=== PATIENT | male | born 1955 | race Caucasian/White ===

== ENCOUNTER 2020-07-21 12:55 | Outpatient (RCR) | payer MEDICAID, SELFPAY ==
[2020-07-21] MEDS: COVID-19 VACC, MRNA(PFIZER)/PF 30 MCG/0.3 ML SYRINGE IM (11:08)
[2020-08-11] MEDS: COVID-19 VACC, MRNA(PFIZER)/PF 30 MCG/0.3 ML SYRINGE IM (10:48)
== END 2020-07-21 23:59 ==
LOC: IMMUN 12:55
PROVIDERS: PCP Family Medicine; Visit Provider Family Medicine
DX: Z23 Encounter for immunization (principal)
CPT/HCPCS: 0001A; 0002A; 91300

== ENCOUNTER 2022-08-08 05:50 | Day surgery (SDC) | payer MEDICARE, MEDICAID, SELFPAY ==
[2022-08-08] VITALS (7 sets, daily range): BP systolic 92–138; BP diastolic 46–94; PULSE 60–65; RESP 16–18; TEMP 36.4–36.9; O2SAT 92–97; BMI 32.3
[2022-08-08] MEDS: Lactated Ringers 1,000 ML 15 ML IV (06:20)
--- NOTE | 2022-08-08 07:00 | COLBX_PTH ---
PATIENT: MARY ALICE EPSTEIN LOC: [facility] U#:[id number] AGE/SX: 67/M ROOM: RE08/08/[address]: Dr. Nicohlas Gauthier DO : 1955 BED: DIS: 08/08/2022 SPEC #: [id number] RECD: 08/08/22 10:23 STATUS: MATTHEW BIENVENIDO #: [id number] MACHO: 08/08/22 07:[address]: Nicholas Gauthier DEPT: SURGICAL PATHOLOGY RECD BY: Francisca Perez ENTERED: 08/08/22 11:35 SP TYPE: COLON BX CHRIS DR: Dr. Adrien Wiley MD Tissues: Ascending colon Procedures: Surgery Specimen Level IV HEADER OPERATION: Colonoscopy ? open access (MAC) with biopsy PRE-OP DIAGNOSIS: Screening TISSUE SUBMITTED: Ascending colon polyp biopsy MICROSCOPIC DIAGNOSIS Ascending colon polyp, biopsy: Tubular adenoma. ADOLFO:maria luz 08/09/2022 MICROSCOPIC DESCRIPTION Slides are reviewed. GROSS DESCRIPTION Received in fixative is one container labeled with the patient's name and designated ascending colon polyp. The specimen consists of one irregular fragment of light peters soft tissue that measures 0.5 x 0.3 x 0.1 cm. The specimen is totally submitted in one cassette. / AM:maria luz 08/08/2022 TC:1 CPT: 33614
--- NOTE | 2022-08-08 07:08 | PCM.HP.STD ---
[facility] - General General Date of Admission: 08/08/22 Date of Service: 08/08/22 Chief Complaint: Screening: [facility] Narrative MARY ALICE EPSTEIN, is a 67 M who presents today for screening colonoscopy. He has a past medical history of hypertension, diabetes,, history of aortic valve repair on 8 with grams of aspirin multiple years ago in 2018. He comes in today for colonoscopy. He is on oral chemotherapy for metastatic prostate cancer. He had a colonoscopy approximately 10 years ago and he had a couple benign polyps that were removed at that time. He denies any chest pain or shortness of breath he denies any weakness. [facility] Medical History (Updated 08/02/22 @ 13:52 by Nehal Uriarte) Cardiology follow-up encounter Diabetes mellitus type 2 in obese Heart murmur History of echocardiogram History of edema History of stress test HTN (hypertension) Loose, teeth Mixed hyperlipidemia Non-smoker Paroxysmal atrial fibrillation Prostate cancer Wears glasses Home Medications abiraterone 500 mg tablet (Zytiga) 1,000 mg PO DAILY Chemo 07/31/22 [History Last Taken 08/08/22 03:30] acetaminophen 500 mg tablet 1,000 mg PO Q6H PRN Pain 07/31/22 [History Last Taken Unknown] amlodipine 2.5 mg tablet 2.5 mg PO BID 07/31/22 [History Last Taken 08/08/22 03:30] aspirin 81 mg tablet,delayed release (Adult Low Dose Aspirin) 81 mg PO DAILY 07/31/22 [History Last Taken Unknown] calcium carbonate 500 mg calcium (1,250 mg) chewable tablet 500 mg PO DAILY PRN Acid Reflux 07/31/22 [History Last Taken Unknown] glimepiride 1 mg tablet 1 mg PO DAILY 07/31/22 [History Last Taken Unknown] hydrochlorothiazide 12.5 mg tablet 12.5 mg PO QAM 07/31/22 [History Last Taken 08/08/22 03:30] ibuprofen 200 mg tablet 200 mg PO Q6H PRN Pain 07/31/22 [History Last Taken Unknown] lisinopril 40 mg tablet 40 mg PO DAILY 07/31/22 [History Last Taken 08/08/22 03:30] metformin 1,000 mg tablet 1,000 mg PO BID 07/31/22 [History Last Taken Unknown] metoprolol succinate 100 mg tablet,extended release 24 hr 100 mg PO BID 07/31/22 [History Last Taken Unknown] prednisone 5 mg tablet 5 mg PO BID 07/31/22 [History Last Taken Unknown] rosuvastatin 10 mg tablet 10 mg PO DAILY 07/31/22 [History Last Taken Unknown] Allergy/AdvReac Type Severity Reaction Status Date / Time No Known Allergies Allergy Verified 08/08/22 06:23 Surgical History (Updated 08/02/22 @ 13:52 by Nehal Uriarte) History of colonoscopy History of hernia repair History of prostate biopsy History of prostate surgery Hx of heart surgery Social History (Updated 07/31/22 @ 13:51 by Rebeca Carvajal) household members: spouse current occupational status: retired Smoking Status: Never smoker ROS Review of Systems ROS Unobtainable: other Constitutional Constitutional: Denies fatigue, fever(s), poor appetite, weight gain or weight loss ENT HEENT: Denies mouth lesions Cardiovascular Cardiovascular: Denies abdominal bloating, abdominal edema or abdominal pain Respiratory/Chest Respiratory/Chest: Denies change in mental status, change in phlegm color, chest congestion or chest tightness Gastrointestinal Gastrointestinal: Denies belching, bloating, change in bowel habits, change in stool character, chewing difficulty, coffee ground emesis, constipation, cramping, diarrhea, dyspepsia, dysphagia, early satiety, excessive flatus, fecal incontinence, heartburn, hematemesis, hematochezia, hemorrhoids, loose stools, melena, nausea, odynophagia, rectal bleeding, tenesmus, vomiting or weight changes Genitourinary Genitourinary: Denies abdominal discomfort, burning urination or itching Musculoskeletal Musculoskeletal: Reports as per HPI; Denies muscle weakness or myalgias Integumentary Integumentary: Denies jaundice Neurologic Neurologic: Denies lack of coordination or weakness Psychiatric Psychiatric: Denies confusion, depression, memory loss, mood swings, paranoia or suicidal ideation Endocrine Endocrinology: Denies systems reviewed and no addt'l complaints, except as documented Hematologic/Lymphatic Hematologic/Lymphatic: Denies anemia, easy bleeding, easy bruising or lymphadenopathy Allergic/Immunologic Allergic/Immunologic: Denies systems reviewed and no addt'l complaints, except as documented Vital Signs Vital Signs Vital Signs: 08/08/22 06:25 08/08/22 06:25 Temperature 97.6 F L Temperature Source Temporal Pulse Rate 60 Respiratory Rate 16 Respiratory Pattern Normal Blood Pressure 138/73 H Blood Pressure Mean 94 Blood Pressure Source Monitor Blood Pressure Position Sitting Blood Pressure Location Left Arm Pulse Ox 97 Oxygen Delivery Method Room Air Weight Weight: 231 lb 7.766 oz Body Mass Index (BMI) 32.3 Physical Exam Const alert General Appearance: cooperative Orientation / Consciousness: oriented to person HEENT hearing grossly normal bilaterally Head and Scalp: normal to inspection Face and Sinus: face symmetric Nose: external nose normal Mouth: oral and palatal mucosa normal Eyes conjunctivae normal General Eye: normal appearance of both eyes Neck full ROM General: normal visual inspection Lymph Lymphatic: no lymphadenopathy noted Chest inspection of chest normal and palpation of chest normal Chest: symmetrical chest wall rise Resp normal respiratory effort Effort and Inspection: able to speak in complete sentences Cardio regular rate GI non-distended Percussion: normal to percussion Rectal Exam: deferred Neuro Speech: speech normal Gait (Neuro): normal gait Assessment & Plan Assessment/Plan (1) Encounter for screening for malignant neoplasm of colon: PLAN: He was explained alternatives, risk, benefits including not withstanding bleeding, infection, sepsis, perforation, need for emergent surgery . He will have an ASA of 3.
--- NOTE | 2022-08-08 07:34 | OP.CCLET_ITS ---
08/08/2022 Adrien Wiley Re : Colonoscopy procedure for Azeem Regalador Saurabh This procedure was performed on August. My impressions and recommendations are as follows: Impressions : - Diverticulosis in the recto-sigmoid colon, in the sigmoid colon, in the descending colon, at the splenic flexure and in the transverse colon. - One 5 mm polyp in the ascending colon, removed with a jumbo cold forceps. Resected and retrieved. Recommendations : - Repeat colonoscopy in 5 years for surveillance. - Continue present medications. My findings are described in the full procedure note, which is enclosed. If I can be of further assistance, please feel free to contact me at . Sincerely, Nicholas Gauthier, 08/08/2022 7:34:09 AM This report has been signed electronically.
--- NOTE | 2022-08-08 07:34 | OP.COLON_ITS ---
Patient Name: Azeem Jimenez Procedure Date: 08/08/2022 6:58 AM Date of : 1955 Age: 67 Procedure: Colonoscopy Indications: Screening for colorectal malignant neoplasm Providers: Nicholas Gauthier DO Referring MD: Nicholas Gautiher DO Medicines: Monitored Anesthesia Care Patient Profile: This is a 67 year old male. Refer to note in patient chart for documentation of history and physical. Last Colonoscopy: 10 years ago. Complications: No immediate complications. Procedure: Pre-Anesthesia Assessment: - Prior to the procedure, a History and Physical was performed, and patient medications and allergies were reviewed. The risks and benefits of the procedure and the sedation options and risks were discussed with the patient. All questions were answered and informed consent was obtained. Patient identification and proposed procedure were verified by the physician in the pre-procedure area. Mental Status Examination: alert and oriented. Airway Examination: normal oropharyngeal airway and neck mobility. Respiratory Examination: clear to auscultation. CV Examination: normal. Prophylactic Antibiotics: The patient does not require prophylactic antibiotics. Prior Anticoagulants: The patient has taken no previous anticoagulant or antiplatelet agents. ASA Grade Assessment: III - A patient with severe systemic disease. After reviewing the risks and benefits, the patient was deemed in satisfactory condition to undergo the procedure. The anesthesia plan was to use monitored anesthesia care (MAC). Immediately prior to administration of medications, the patient was re-assessed for adequacy to receive sedatives. The heart rate, respiratory rate, oxygen saturations, blood pressure, adequacy of pulmonary ventilation, and response to care were monitored throughout the procedure. The physical status of the patient was re-assessed after the procedure. After I obtained informed consent, the scope was passed under direct vision. Throughout the procedure, the patient's blood pressure, pulse, and oxygen saturations were monitored continuously. The Colonoscope was introduced through the anus and advanced to the cecum, identified by appendiceal orifice and ileocecal valve. The colonoscopy was performed without difficulty. The patient tolerated the procedure well. The quality of the bowel preparation was adequate. Scope In: 7:16:01 AM Scope Withdrawal Time 0 hours 9 minutes 12 seconds Scope Out: 7:28:14 AM Total Procedure Duration Time 0 hours 12 minutes 13 seconds Findings: The perianal and digital rectal examinations were normal. Multiple small and large-mouthed diverticula were found in the recto-sigmoid colon, sigmoid colon, descending colon, splenic flexure and transverse colon. A 5 mm polyp was found in the ascending colon. The polyp was sessile. The polyp was removed with a jumbo cold forceps. Resection and retrieval were complete. Verification of patient identification for the specimen was done. Estimated blood loss was minimal. Impression: - Diverticulosis in the recto-sigmoid colon, in the sigmoid colon, in the descending colon, at the splenic flexure and in the transverse colon. - One 5 mm polyp in the ascending colon, removed with a jumbo cold forceps. Resected and retrieved. Recommendation: - Repeat colonoscopy in 5 years for surveillance. - Continue present medications. Procedure Code(s): --- Professional --- 37097, Colonoscopy, flexible; with biopsy, single or multiple CPT copyright 2017 [employer]. All rights reserved. The codes documented in this report are preliminary and upon principal clerk review may be revised to meet current compliance requirements. Nicholas Gauthier DO 08/08/2022 7:34:09 AM This report has been signed electronically. Number of Addenda: 0 Note Initiated On: 08/08/2022 6:58 AM
== END 2022-08-08 08:20 | disposition home or self-care (01) ==
LOC: EN 05:51 → AC 05:53
PROVIDERS: PCP Family Medicine; Referring Provider Family Medicine; Visit Provider Internal Medicine Gastroenterology
PROC: 0DJD8ZZ Inspection of Lower Intestinal Tract, Via Natural or Artificial Opening Endoscopic (ICD-10-PCS; CPT 45378; principal; 2022-08-08 06:55)
DX: Z12.11 Encounter for screening for malignant neoplasm of colon (principal); D89.89 Other specified disorders involving the immune mechanism, not elsewhere classified; E11.9 Type 2 diabetes mellitus without complications; D12.5 Benign neoplasm of sigmoid colon; K55.20 Angiodysplasia of colon without hemorrhage; K57.30 Diverticulosis of large intestine without perforation or abscess without bleeding; K62.89 Other specified diseases of anus and rectum; K44.9 Diaphragmatic hernia without obstruction or gangrene; K59.00 Constipation, unspecified; D13.0 Benign neoplasm of esophagus; K22.89 Other specified disease of esophagus; K29.50 Unspecified chronic gastritis without bleeding; K21.9 Gastro-esophageal reflux disease without esophagitis; R93.3 Abnormal findings on diagnostic imaging of other parts of digestive tract; E78.2 Mixed hyperlipidemia; I10 Essential (primary) hypertension; F41.9 Anxiety disorder, unspecified; Z79.84 Long term (current) use of oral hypoglycemic drugs; Z79.899 Other long term (current) drug therapy
CPT/HCPCS: 45380; 43239; 88305; J7120; J2405